=== PATIENT | male | born 1995 | race Caucasian/White ===

== ENCOUNTER 2017-08-05 08:54 | Emergency (ER) | payer OTHER | END 2017-08-05 10:24 | disposition home or self-care (01) | LOC: M ED 08:54 | DX: Z04.1 Encounter for examination and observation following transport accident (principal); T14.8XXA Other injury of unspecified body region, initial encounter; S06.0X0A Concussion without loss of consciousness, initial encounter; V48.5XXA Car driver injured in noncollision transport accident in traffic accident, initial encounter; Y92.410 Unspecified street and highway as the place of occurrence of the external cause; M54.2 Cervicalgia; F17.210 Nicotine dependence, cigarettes, uncomplicated | CPT/HCPCS: 70450 ==

== ENCOUNTER 2019-02-15 15:53 | Emergency (ER) | payer OTHER ==
[~2019-02-15] VITALS: Ht 182.9 cm; Wt 83.8 kg
[~2019-02-15 15:53] MED LIST: CYCL10TA PO; TRAM50TA2 PO
[2019-02-15 15:54] VITALS: BP 132/60
--- NOTE | 2019-02-15 17:22 | REP ---
LEFT HAND, FOUR VIEWS: HAND: There is no evidence of an acute fracture, dislocation or intrinsic bone disease. IMPRESSION: No fracture or dislocation. Electronically Signed by Peter Garza MD 02/17/2019 09:55 A
== END 2019-02-15 18:07 | disposition home or self-care (01) ==
LOC: M ED 15:53
DX: S60.052A Contusion of left little finger without damage to nail, initial encounter (principal); W22.8XXA Striking against or struck by other objects, initial encounter; Y93.9 Activity, unspecified; Y92.9 Unspecified place or not applicable